=== PATIENT | female | born 1945 | race Caucasian/White ===

== ENCOUNTER 2023-02-09 13:20 | Inpatient (IN) | payer MEDICARE, SELFPAY ==
[2023-02-09] VITALS (17 sets, daily range): BP systolic 113–169; BP diastolic 41–91; PULSE 61–87; RESP 14–22; TEMP 36.1–36.8; O2SAT 89–100; BMI 30.1; BMI 28.0
--- NOTE | ~2023-02-09 | XR_ITS ---
EXAMINATION: Chest x-ray. COMPARISON: None. C ICAL INDICATIONNone available.severe abdominFrontal. TECHNIQUE: One view chest. FINDINGS: TheNo significant abnormality is noted involving the heart, lungs, mediastinum, bony thorax or soft tissues.rity slightly pUnremarkable examination.left pleural effusion or thickening there is mild spondylosis throughout dorsal spine. XR/XR chest 1V IMPRESSION: Mild haziness in both lung bases likely atelectasis or effusion. Mild cardiomegaly with mild prominence of pulmonary vascularity but no congestion.
--- NOTE | ~2023-02-09 | CT_ITS ---
Examination: CTA chest and CT abdomen and pelvis with contrast. CLINICAL INDICATION: CVA chest pain with diaphoretic and pale. COMPARISON: Chest x-ray performed earlier today at 1:25 PM. TECHNIQUE: 5 mm thin axial and reformatted 3 mm thin sagittal and coronal images of chest were obtained following IV however mL Omnipaque 350 50. Subsequently axial 3 minutes thin and 3 mm reformatted sagittal coronal images of abdomen pelvis were obtained. DLP 529. This CT examination was performed using dose optimization technique as appropriate, variously including the following: Automated exposure control Adjustment of MA and/or KV according to patient size(this includes techniques or standardized protocols for targeted exams where dose is matched to indication/reason for exam; extremities or head. Use of iterative reconstruction techniques. FINDINGS : CHEST VASCULAR: There is good opacification of thoracic aorta without aneurysm or dissection. There is a three-vessel branching of the aortic arch. There is opacification of pulmonary artery and is branches. There is no intraluminal filling defect or narrowing. NONVASCULAR: LUNGS: The lungs are well-expanded and clear of acute process. No pulmonary nodule, mass or consolidation seen. Mediastinum: The large hiatal hernia with significant narrowing of the GE junction. A volvulus cannot be excluded and should be considered in the differential diagnosis. Mild Heart size is normal. There is no pericardial effusion. Central trachea and the bronchi widely patent. No abnormal size mediastinal or hilar lymph nodes seen. Pleura: There is no pleural effusion or thickening. Axilla: No abnormal size axillary lymph nodes seen. The chest wall is unremarkable. Osseous structures: No aggressive lytic or sclerotic process seen. ABDOMEN AND PELVIS: Liver, ducts and gallbladder: The liver is normal size, contour and density. No focal lesion or intrahepatic ductal dilatation seen. There are no gallstones. Spleen: Unremarkable. Pancreas: Unremarkable. Adrenal glands: Unremarkable. Kidneys and ureters: Both kidney nephrograms are symmetrical in size and configuration without enlargement. No radiopaque renal calculi or hydronephrosis seen. GI tract: There is scattered stool and gas seen throughout the colon without significant distention. There is few scattered diverticuli but no evidence of mural thickening or fat stranding. Small bowel loops are normal caliber. Appendix is normal caliber. No free air or free fluid seen. Lymphovascular structures: Abdominal aorta is of normal caliber there is mild stenosis of the origin of celiac artery. Superior mesenteric, solitary renal arteries and inferior mesenteric artery are widely patent. Both common iliac arteries are patent as well. Abdominal wall is unremarkable. Pelvis: The uterus is anteverted. There is no free air or free fluid. Osseous structures: Grade 1 anterolisthesis L4 over L5. There is mild right L5/S1 facet joint arthropathy. No aggressive lytic or sclerotic process seen. CT/CT angio abdomen pelvis IMPRESSION: No evidence of PE. No evidence aortic aneurysm or dissection. Large hiatal hernia. There is thickening and narrowing of the GE junction. In view of patient's acute vomiting and inability to pass NG tube a gastric organoaxial volvulus needs to be excluded. Colonic diverticulosis without diverticulitis. Normal appendix. Results were discussed with Sheila BERMUDEZ by phone at 3:40 PM
--- NOTE | 2023-02-09 13:30 | ECG_ITS ---
Test Reason : chest pain Blood Pressure : / mmHG Vent. Rate : 071 BPM Atrial Rate : 071 BPM P-R Int : 290 ms QRS Dur : 086 ms QT Int : 420 ms P-R-T Axes : 061 018 065 degrees QTc Int : 456 ms Sinus rhythm with 1st degree A-V block Otherwise normal ECG No previous ECGs available Referred By: Kajal Flores Electronically Signed By:ANTONIO GARZON
--- NOTE | 2023-02-09 13:38 | ED.CHESTPAIN ---
HPI - Chest Pain General Chief Complaint: Chest Pain Stated Complaint: CHEST PAIN EPIGASTRIC PAIN Time Seen by Provider: 02/09/23 13:37 Source: patient Mode of arrival: EMS Limitations: no limitations History of Present Illness HPI narrative: 78-year-old female history of hiatal hernia, hypertension, hyperlipidemia presents with complaints of sudden-onset epigastric/chest pain with associated nausea, pain started after eating lunch she had some noodles for lunch, she reports pain is severe stabbing, also reports she feels cold, clammy family also reports she looks pale and unwell. They were going to drive her to the hospital however she got worse. On arrival she was cold, clammy, reporting severe 10/10 epigastric pain that radiates to her back. Patient does have a history of esophageal strictures and has had to have multiple endoscopies. Has not been med compliant with hypertensive medications or PPIs. Related Data Allergies Allergy/AdvReac Type Severity Reaction Status Date / Time Unable to Assess Allergy Unverified 02/09/23 13:25 Review of Systems Review of Systems: Constitutional : No Weight loss, No Fever, No Chills, No Fatigue, No Malaise ENT/Mouth : No sore throat, No Rhinorrhea Eyes: No Eye Pain, No Swelling, No Redness Cardiovascular : + Chest Pain, No SOB, No Dyspnea on Exertion, No Orthopnea, No Edema, No Palpitations Respiratory : No Cough, No Sputum, No Wheezing Gastrointestinal : No Nausea, No Vomiting, No Diarrhea, No Constipation, No abdominal Pain, No Hematochezia, No Melena Genitourinary : No Dysuria, No Urinary Frequency, No Hematuria, Musculoskeletal : No joint pain, No Myalgias, No Joint Swelling Skin : No Skin Lesions, No rash Neuro : No Weakness, No Numbness, No Dizziness, No Headache Psych : No Anxiety/Panic, No Depression All other systems reviewed and are negative Yes all other systems are reviewed and are negative COUNT INCLUDES THE [facility] Past Medical History Attestation statement: The following information was validated with the patient. Source: old records reviewed and nursing notes reviewed Social History Social History Unable to assess alcohol history related to: Unknown Smoked in Last 30 Days: No Use of substances other than those prescribed or required for medical reasons: Unknown Advance Directives: Yes Advance Directives Information Provided: Yes Advance Directives on File: No Physical Exam Vital Signs: Vital Signs: Last Vital Signs Pulse 67 02/09/23 14:00 Resp 22 H 02/09/23 14:00 BP 159/78 H 02/09/23 14:00 Pulse Ox 97 02/09/23 14:00 O2 Del Method Nasal Cannula 02/09/23 14:00 O2 Flow Rate 2 02/09/23 14:00 BMI result Body Mass Index 30.1 Vital signs significant for hypoxia, low blood pressure. Appearance: Alert.? Oriented X3.? Patient on well appearing. Uncomfortable. Head: Normocephalic, atraumatic, no step-offs or deformities Eyes: Pupils equal, round and reactive to light.? ENT: Pharynx normal.? Neck: Normal inspection.? Neck supple.? CVS: Normal heart rate and rhythm.? Pulses normal.? Respiratory: No respiratory distress.? Breath sounds breath sounds diminished on the right..? Abdomen: Soft and nontender.? No abdominal bruits Skin: Skin cold and clammy. Patient diaphoretic..? Normal skin color.? Normal skin turgor.? Extremities: No lower extremity edema.? No calf ttp. 5/5 strength to bilateral upper and lower extremities Back: No midline tenderness, no C-spine tenderness, full range of motion, no CVA tenderness bilaterally Neuro: Oriented X 3.? No motor deficit.? No sensory deficit. CN 2-12 intact Course Reevaluation(s) Reevaluation #1: CBC w/ nomocytic anemia. No baseline labs to compare with. Chemistry unremarkable. Trop negative, EKG non ischemic. Normal BNP. Coags unremarkable. COVID pending. I did look at the CT scan ? paraesophageal hernia large. Consulted surgery as they were down in the department. Dr. Cortez evaluated patient and statetes patient Should be brought to the operating room as she is symptomatic. Xray showing mild haziness in both lung bases likely atelectesis or effusion. Mild cardiomegaly w/ mild prominence of pulmonary vascularity but no congesiton. General surgery was at bedside. Recommended NGT prior to OR Nursing tried a lot of resistance. Gen surg aware of this. Called Jemal for STAT read of CTA chest, abd, pelvis. Time: 15:31 Reevaluation #2: Jemal on Radiology states large hiatal hernia and questionable volvulous very symptomatic paitnet to go to the OR Surgery at bedside. Time: 15:43 Medications Administered Discontinued Medications Generic Name Dose Route Start Last Admin Trade Name Chris PRN Reason Stop Dose Admin Fentanyl 50 mcg 02/09/23 13:41 02/09/23 13:51 Fentanyl Citrate/Pf 100 Mcg/2 Ml Vial IVPUSH 02/09/23 13:42 50 mcg ONCE ONE Administration Protocol Fentanyl 50 mcg 02/09/23 14:15 02/09/23 14:24 Fentanyl Citrate/Pf 100 Mcg/2 Ml Vial IVPUSH 02/09/23 14:16 50 mcg ONCE ONE Administration Protocol Iohexol 100 ml 02/09/23 13:53 02/09/23 13:53 Iohexol 350 Mg/Ml 100 Ml Infus..Btl IV 02/09/23 13:54 100 ml ONCE ONE Administration Lidocaine HCl 1 appl 02/09/23 14:53 02/09/23 15:22 Lidocaine Hcl 4 % Caplxh-U-Wdt 4 Ml TOPICAL 02/09/23 14:54 Not Given ONCE ONE Ondansetron HCl 4 mg 02/09/23 14:40 02/09/23 15:12 Ondansetron Hcl 4 Mg/2 Ml Vial IVPUSH 02/09/23 14:41 4 mg ONCE ONE Administration Medical Decision Making Medical Decision Making [facility] Narrative: 1046 78-year-old female presents with complaints of severe epigastric/chest pain that started prior to arrival after eating pain is severe, patient pale, diaphoretic, also reporting radiation of pain to back. Physical examination patient pale, clammy, cold, unwell appearing, uncomfortable. No abdominal bruits. Regular rate and rhythm. Breath sounds diminished on the right. Concerns for CHF versus potential dissection versus esophageal stricture versus aspiration versus acute respiratory distress. Will rule out ACS. Unlikely pulmonary embolism. Plan labs, imaging, viral test, cxr, angio chest abd pelvis Immediately upon patient arrival discuss this case with my attending Dr. Lashawn Eagle who agrees with treatment plan. Differential Diagnosis Differential Diagnoses: The differential diagnosis associated with the presentation includes Concerns for CHF versus potential dissection versus esophageal stricture versus aspiration versus acute respiratory distress. Will rule out ACS. Unlikely pulmonary embolism. Lab Data 02/09/23 13:40 02/09/23 13:40 Labs: Lab Results 02/09/23 02/09/23 Range/Units 13:40 14:01 WBC 6.9 (4.8-10.8) X10*3/uL RBC 3.63 L (4.20-5.50) X10*6/uL Hgb 9.3 L (12.0-16.0) g/dl Hct 29.5 L (37.0-47.0) % MCV 81.3 (80.0-98.0) fL MCH 25.6 L (27.0-33.0) pg MCHC 31.5 (31.0-35.0) g/dl RDW 13.7 (11.0-16.0) % Plt Count 423 H (160-400) X10*3/uL MPV 10.5 (9.4-12.3) fL Immature Gran % (Auto) 0.4 (0.0-0.4) % Neut % (Auto) 41.9 L (45-73) % Lymph % (Auto) 43.5 H (20-40) % [place] % (Auto) 9.5 (2-11) % Eos % (Auto) 3.1 (0-4) % Baso % (Auto) 1.6 (0-2) % Lymph # (Auto) 3.0 (1.2-4.9) X10*3/uL [place] # (Auto) 0.7 (0.1-1.2) X10*3/uL Eos # (Auto) 0.2 (0.0-0.4) X10*3/uL Baso # (Auto) 0.1 (0.0-0.2) X10*3/uL Abs Immat Gran (auto) 0.03 (0.00-0.03) X10*3/uL Absolute Neuts (auto) 2.9 (2.0-8.3) x10*3/uL Absolute Nucleated RBC 0.000 (0.0-0.012) X10*3/uL Nucleated RBC % (auto) 0.0 (0.0-0.2) /100WBC Smear Tech's Comments VERIFIED Hold Purple Top SEE NOTE PT 11.7 (11.1-13.3) SEC INR 1.0 (0.9-1.1) Sodium 141 (135-145) mmol/L Potassium 3.7 (3.3-5.1) mmol/L Chloride 110 H (96-108) mmol/L Carbon Dioxide 20 L (22-29) mmol/L Anion Gap 15 (12-20) BUN 15 (9-16) mg/dL Creatinine 0.78 (0.5-1.4) mg/dL Estim Creat Clear Calc 55.7 Estimated GFR > 60 POC Glucose 139 H (60-115) mg/dL Random Glucose 150 H (60-115) mg/dL Calcium 9.1 (8.4-10.2) mg/dL Magnesium 2.2 (1.6-2.6) mg/dL Total Bilirubin 0.3 (0.0-1.0) mg/dL AST 40 H (5-31) U/L ALT 24 (0-31) U/L Alkaline Phosphatase 82 (39-117) U/L Troponin I High Sens < 2.7 (<3.5-17.0) ng/L B-Natriuretic Peptide < 10 (<100) pg/mL Total Protein 7.1 (6.5-8.0) g/dL Albumin 3.9 (3.5-5.0) g/dL Hold Yellow Top See Note Critical Care Time Critical Care Time Critical Care Time: Yes Total Critical Care Time: 60 Attestation: I attest to this time spent taking care of the patient, obtaining history, physical, reviewing labs, imaging, speaking to my attending, speaking to specialist. Discharge Plan Discharge Clinical Impression: Epigastric pain, Chest pain, Cardiomegaly, Nausea & vomiting, Hernia, hiatal, Volvulus Patient Disposition: Still a Patient
[2023-02-09] MEDS: fentaNYL citrate/PF 100 MCG/2 ML VIAL 50 MCG IVPUSH ×4 (13:51→19:15)
[2023-02-09] MEDS: iohexoL 350 MG/ML 100 ML INFUS..BTL IV (13:53)
[2023-02-09 13:57] LABS: Basophils Absolute Auto 0.1 X10*3/uL (0.0-0.2); Basophils Percent Auto 1.6 % (0-2); Eosinophils Absolute Auto 0.2 X10*3/uL (0.0-0.4); Eosinophils Percent Auto 3.1 % (0-4); Hematocrit 29.5 % (37.0-47.0); Hemoglobin 9.3 g/dl (12.0-16.0); Imm Gran Abs Auto 0.03 X10*3/uL (0.00-0.03); Imm Gran Pct Auto 0.4 % (0.0-0.4); Lymphocytes Percent Auto 43.5 % (20-40); MANUAL DIFF FLAG SCAN; Mean Corpuscular HGB Conc 31.5 g/dl (31.0-35.0); Mean Corpuscular Hemoglobin 25.6 pg (27.0-33.0); Mean Corpuscular Volume 81.3 fL (80.0-98.0); Monocytes Absolute Auto 0.7 X10*3/uL (0.1-1.2); Monocytes Percent Auto 9.5 % (2-11); Neutrophils Absolute Auto 2.9 x10*3/uL (2.0-8.3); Neutrophils Percent Auto 41.9 % (45-73); PLT CLUMP 1; Red Blood Count 3.63 X10*6/uL (4.20-5.50); Red Cell Distribution Width 13.7 % (11.0-16.0); SCAN SMEAR FLAG 1; White Blood Count 6.9 X10*3/uL (4.8-10.8)
--- NOTE | 2023-02-09 14:02 | MHC.EDTECH ---
POC 139 RN aware
[2023-02-09 14:03] LABS: Prothrombin Time 11.7 SEC (11.1-13.3)
[2023-02-09 14:06] LABS: Glucose, Whole Blood 139 mg/dL (60-115)
[2023-02-09 14:17] LABS: Troponin-I High Sensitivity < 2.7 ng/L (<3.5-17.0)
[2023-02-09 14:21] LABS: Alanine Aminotransferase 24 U/L (0-31); Albumin Level 3.9 g/dL (3.5-5.0); Alkaline Phosphatase 82 U/L (39-117); Anion Gap 15 (12-20); Aspartate Amino Transferase 40 U/L (5-31); Bilirubin Total 0.3 mg/dL (0.0-1.0); Blood Urea Nitrogen 15 mg/dL (9-16); Calcium 9.1 mg/dL (8.4-10.2); Carbon Dioxide 20 mmol/L (22-29); Chloride 110 mmol/L (96-108); Creatinine Clr Calc Pharmacy 55.7; Estimated Glomerular Filt Rate > 60; Glucose Random 150 mg/dL (60-115); Magnesium 2.2 mg/dL (1.6-2.6); Potassium 3.7 mmol/L (3.3-5.1); Sodium 141 mmol/L (135-145); Total Protein 7.1 g/dL (6.5-8.0)
[2023-02-09 14:23] LABS: Mean Platelet Volume 10.5 fL (9.4-12.3); Platelet Count 423 X10*3/uL (160-400)
[2023-02-09 14:24] LABS: SLIDE REVIEW VERIFIED
[2023-02-09 15:05] LABS: B Type Natriuretic Peptide < 10 pg/mL (<100)
[2023-02-09] MEDS: ondansetron HCL 4 MG/2 ML VIAL IVPUSH (15:12)
--- NOTE | 2023-02-09 15:56 | PC.NURSE ---
Report to PACU staff. Pt off the floor with surgeon to OR
--- NOTE | 2023-02-09 16:07 | HO.ANESPROP2 ---
HPI - Anesthesia Eval Consult details Narrative: for repair of gastric volvulus PMFSH Active Problems Active Problems: All Active Problems (Updated 02/09/23 @ 15:44 by AIDAN Schafer) Volvulus (Acute) Hernia, hiatal (Acute) Nausea & vomiting (Acute) Cardiomegaly (Acute) Chest pain (Acute) Epigastric pain (Acute) Past Medical History Medical History (Updated 02/09/23 @ 16:18 by Marina Morales RN) Acid reflux Hypertension Hypercholesteremia Family History Family history of problems with anesthesia: No Surgical History History of Problems with Anesthesia: No Social History Social History Unable to assess alcohol history related to: Unknown Smoked in Last 30 Days: No Use of substances other than those prescribed or required for medical reasons: Unknown Advance Directives: Yes Advance Directives Information Provided: Yes Advance Directives on File: No Meds Allergies Allergy/AdvReac Type Severity Reaction Status Date / Time meperidine [From Demerol] Allergy Unknown Verified 02/09/23 16:07 Active Medications: Current Medications Famotidine (Famotidine/Pf 20 Mg/2 Ml Vial) 20 mg IVPUSH ONCE ONE Stop: 02/09/23 16:16 Hydromorphone HCl (Hydromorphone Hcl 1 Mg/Ml Syringe) 1 mg IVPUSH ONCE ONE Stop: 02/09/23 16:16 Exam Height,Weight and Vital Signs: Height 5 ft 1 in Weight 72.2 kg Last Vital Signs Temp 97.3 F 02/09/23 15:52 Pulse 77 02/09/23 15:52 Resp 18 02/09/23 15:52 BP 139/71 02/09/23 15:52 Pulse Ox 96 02/09/23 15:52 O2 Del Method Room Air 02/09/23 15:52 O2 Flow Rate 2 02/09/23 14:00 Pertinent Lab Results Pertinent Lab Results: Laboratory Tests 02/09/23 02/09/23 13:40 14:01 WBC 6.9 RBC 3.63 L Hgb 9.3 L Hct 29.5 L MCV 81.3 MCH 25.6 L MCHC 31.5 RDW 13.7 Plt Count 423 H MPV 10.5 Immature Gran % (Auto) 0.4 Neut % (Auto) 41.9 L Lymph % (Auto) 43.5 H [place] % (Auto) 9.5 Eos % (Auto) 3.1 Baso % (Auto) 1.6 Lymph # (Auto) 3.0 [place] # (Auto) 0.7 Eos # (Auto) 0.2 Baso # (Auto) 0.1 Abs Immat Gran (auto) 0.03 Absolute Neuts (auto) 2.9 Absolute Nucleated RBC 0.000 Nucleated RBC % (auto) 0.0 Smear Tech's Comments VERIFIED Hold Purple Top SEE NOTE PT 11.7 INR 1.0 Sodium 141 Potassium 3.7 Chloride 110 H Carbon Dioxide 20 L Anion Gap 15 BUN 15 Creatinine 0.78 Estim Creat Clear Calc 55.7 Estimated GFR > 60 POC Glucose 139 H Random Glucose 150 H Calcium 9.1 Magnesium 2.2 Total Bilirubin 0.3 AST 40 H ALT 24 Alkaline Phosphatase 82 Troponin I High Sens < 2.7 B-Natriuretic Peptide < 10 Total Protein 7.1 Albumin 3.9 Hold Yellow Top See Note Narrative Narrative: ED was unable to place NGT, prob bec of volvulus. D/w Dr. Cortez at length, stomach and esoph should be empty. IMO, no need for awake intubation. Airway Mallampati Class: II TM Dist: <=3cm Neck ROM: Full Loose/Missing/Broken Teeth: No Heart: ok Lungs: ok Assessment and Plan Assessment Anesthesia Assessment: Anesthesia Plan Discussed and Chart Reviewed Final Anesthetic Review Family History of Problems with Anesthesia: No History of Problems with Anesthesia: No NPO: No (last ate at noon today, but wretched everything up) ASA Class: III and Emergency Final Preanesthetic Review: No Changes in Pt Med Stat, Meds/Allgs Chart Reviewed, Consent Obtained/Reviewed and Anes Risks/Benef Reviewed Patient Risk: Intermediate Procedure Risk: Intermediate Anesthetic Plan Anesthetic Plan: GA (w RSI.) and Agree w/ Assess. and Plan Disposition: Standard PACU
[2023-02-09] MEDS: HYDROmorphone HCl 1 MG/ML SYRINGE IVPUSH (16:08)
[2023-02-09] MEDS: Famotidine/PF 20 MG/2 ML VIAL IVPUSH (16:08)
--- NOTE | 2023-02-09 16:28 | P.HPGS_ITS ---
History of Present Illness History of Present Illness Date of Service: 02/09/23 <Abimbola Magdaleno PA-C - Last Filed: 02/09/23 16:39> 02/09/23 <Kurt Cortez MD - Last Filed: 02/09/23 16:35> Chief complaint: CHEST PAIN EPIGASTRIC PAIN <Abimbola Magdaleno PA-C - Last Filed: 02/09/23 16:39> Narrative: Valentina Briggs is a 78 year old female with PMH of hiatal hernia, hypertension, hyperlipidemia who presented to the ED with complaints of sudden- onset epigastric/chest pain. The pain started today after eating lunch. It was associated with nausea and vomiting and some shortness of breath. The pain is described as severe stabbing and radiating to her back. She denies fever, but endorses feeling cold and clammy. Work up included CTA of chest and abdomen which showed a large hiatal hernia with thickening and narrowing of the GE junction and mesentroaxial gastric volvulus without evidence aortic aneurysm or dissection. Surgery was therefore consulted. <Abimbola Magdaleno PA-C - Last Filed: 02/09/23 16:39> Review of Systems Constitutional: Constitutional: Reports chills, Denies fever(s) and Denies malaise <Abimbola Magdaleno PA-C - Last Filed: 02/09/23 16:39> ENT: Denies dizziness <Abimbola Magdaleno PA-C - Last Filed: 02/09/23 16:39> Cardiovascular: Cardiovascular: Reports chest pain and Reports dyspnea <Abimbola Magdaleno PA-C - Last Filed: 02/09/23 16:39> Respiratory: Respiratory: Denies cough and Reports dyspnea <LEANNA Montes Last Filed: 02/09/23 16:39> Gastrointestinal: Gastrointestinal: Reports as per HPI, Denies coffee ground emesis, Denies constipation, Denies diarrhea and Denies hematemesis <LEANNA Montes Last Filed: 02/09/23 16:39> Genitourinary: Genitourinary: Denies dysuria <LEANNA Montes Last Filed: 02/09/23 16:39> Integumentary/Breasts: Skin/Breast: Denies rash and Denies jaundice <Abimbola Magdaleno PA-C - Last Filed: 02/09/23 16:39> Neurologic: Denies confusion and Denies dizziness <LILLIANA Montes - Last Filed: 02/09/23 16:39> Psychiatric: Psychiatric: Denies confusion <Abimbola Magdaleno PA-C - Last Filed: 02/09/23 16:39> [facility] Past Medical History Medical History: Medical History (Updated 02/09/23 @ 16:33 by Abimbola Magdaleno PA-C) Acid reflux Hypertension Hypercholesteremia <Abimbola Magdaleno PA-C - Last Filed: 02/09/23 16:39> Social History Social History: Social History Unable to assess alcohol history related to: Unknown Patient Tobacco Use Status: Never used Tobacco Smoked in Last 30 Days: No Use of substances other than those prescribed or required for medical reasons: Unknown Are you DNR?: No Advance Directives: No Advance Directives Information Provided: Yes Advance Directives on File: No Recently lost weight without trying: No Nutrition Risks: No Nutritional Risk <Abimbola Magdaleno PA-C - Last Filed: 02/09/23 16:39> Meds Allergies/Adverse reactions: Allergies Allergy/AdvReac Type Severity Reaction Status Date / Time meperidine [From Demerol] Allergy Unknown Verified 02/09/23 16:07 <Abimbola Magdaleno PA-C - Last Filed: 02/09/23 16:39> Active Medications: Current Medications Fentanyl (Fentanyl Citrate/Pf 100 Mcg/2 Ml Vial) 50 mcg IVPUSH Q5M PRN; Protocol PRN Reason: Pain, Severe (Pain Scale 7-10) Hydromorphone HCl (Hydromorphone Hcl 0.5 Mg/0.5 Ml Syringe) 0.5 mg IVPUSH Q5M PRN; Protocol PRN Reason: Pain, Severe (Pain Scale 7-10) Ondansetron HCl (Ondansetron Hcl 4 Mg/2 Ml Vial) 4 mg IVPUSH ONCE PRN PRN Reason: Nausea and Vomiting <Abimbola Magdaleno PA-C - Last Filed: 02/09/23 16:39> Physical Exam Vital Signs: Vital Signs: Last Vital Signs Temp 97.3 F 02/09/23 15:52 Pulse 77 02/09/23 15:52 Resp 18 02/09/23 16:08 BP 139/71 02/09/23 15:52 Pulse Ox 96 02/09/23 15:52 O2 Del Method Room Air 02/09/23 15:52 O2 Flow Rate 2 02/09/23 14:00 BMI result Body Mass Index 28.0 <Abimbola Magdaleno PA-C - Last Filed: 02/09/23 16:39> Const: General: alert and other (uncomfortable appearing ); No confusion <Abimbola Magdaleno PA-C - Last Filed: 02/09/23 16:39> Orientation/consciousness: patient oriented x3 and No confusion <Abimbola Magdaleno PA-C - Last Filed: 02/09/23 16:39> Resp: Effort & Inspection: normal respiratory effort <Abimbola Magdaleno PA-C - Last Filed: 02/09/23 16:39> Auscultation: diminished lung sounds (b/l) <LILLIANA Montes - Last Filed: 02/09/23 16:39> Cardio: Rate: regular rate <Abimbola Magdaleno PA-C - Last Filed: 02/09/23 16:39> GI: Inspection: No distended <Abimbola Magdaleno PA-C - Last Filed: 02/09/23 16:39> Palpation (GI): Soft to palpation, Tenderness to palpation present (GI) (upper abdomen ), no guarding and not rigid <Abimbola Magdaleno PA-C - Last Filed: 02/09/23 16:39> Percussion: Yes normal to percussion <Abimbola Magdaleno PA-C - Last Filed: 02/09/23 16:39> Skin: General skin exam: no rashes or lesions noted and no jaundice <Abimbola Magdaleno PA-C - Last Filed: 02/09/23 16:39> Neuro: General: patient oriented x3, moves all extremities and No confusion <Abimbola Magdaleno PA-C - Last Filed: 02/09/23 16:39> Results Results Labs: Short CBC 02/09/23 Range/Units 13:40 WBC 6.9 (4.8-10.8) X10*3/uL Hgb 9.3 L (12.0-16.0) g/dl Hct 29.5 L (37.0-47.0) % Plt Count 423 H (160-400) X10*3/uL BMP 02/09/23 13:40 Sodium 141 Potassium 3.7 Chloride 110 H Carbon Dioxide 20 L BUN 15 Creatinine 0.78 Calcium 9.1 Liver Function 02/09/23 Range/Units 13:40 Total Bilirubin 0.3 (0.0-1.0) mg/dL AST 40 H (5-31) U/L ALT 24 (0-31) U/L Alkaline Phosphatase 82 (39-117) U/L Albumin 3.9 (3.5-5.0) g/dL <LEANNA Montes Last Filed: 02/09/23 16:39> Abdomen CT scan report/results: report reviewed and image reviewed <LEANNA Montes Last Filed: 02/09/23 16:39> Assessment and Plan (1) Gastric volvulus: Status: Acute <LEANNA Montes Last Filed: 02/09/23 16:39> The patient will be admitted to the surgical intervention for further treatment of the gastric volvulus. It was recommended to proceed with laparotomy, repair of the gastric volvulus and G tube placement. Risks, benefits, alternatives of the procedure were reviewed with the patient and daughter including but not limited to bleeding, infection, numbness, pain, scarring, injury to the stomach or bowel, recurrence. The patient and family wishes to proceed. NGT has been ordered preoperatively. <LEANNA Montes Last Filed: 02/09/23 16:39> Quality Stroke Does the patient have a stroke diagnosis?: No <Kurt Cortez MD - Last Filed: 02/09/23 16:35> VTE Prior VTE?: No <Kurt Cortez MD - Last Filed: 02/09/23 16:35> VTE Risk Level:: Surgical - low <Kurt Cortez MD - Last Filed: 02/09/23 16:35> VTE Device Contraindication: N/A - Device Ordered <Kurt Cortez MD - Last Filed: 02/09/23 16:35> VTE Drug Contraindication: N/A - Med Ordered <Kurt Cortez MD - Last Filed: 02/09/23 16:35> Procedures Date of Service Date of Service: 02/09/23 <Abimbola Magdaleno PA-C - Last Filed: 02/09/23 16:39> 02/09/23 <Kurt Cortez MD - Last Filed: 02/09/23 16:35>
--- NOTE | 2023-02-09 17:56 | W.PM.OPN ---
Operative Note Operative Note Date of Service: 02/09/23 Narrative: Preoperative diagnosis: [] Acute gastric volvulus, paraesophageal hernia Postop diagnosis: [] Same Procedure [] exploratory laparotomy, reduction gastric volvulus, closure of esophageal hiatus, open G-tube placement Surgeon: [] Diego [employer] Deliverer: [] Sharla Type of Anesthesia: [] General Indication for surgery: [] Patient presents with acute severe retrosternal pain with inability to tolerate food and vomiting. Workup including CT scan demonstrated findings consistent with large paraesophageal hernia and acute gastric volvulus. Patient was in acute significant distress. To limit intraop anesthesia time in this elderly patient,, decision was made to repair this via open technique. Intraoperative findings demonstrated an enormous paraesophageal hiatal hernia with the good portion of the stomach in the patient's mediastinum with the stomach folded on itself. Stomach was edematous, quite floppy and atonic, but pink and viable throughout.. Open G-tube placement demonstrated old food content in the stomach. Findings: [] Patient brought to the operating room, placed drop table supine position, after adequate level of general anesthesia was induced, the patient's abdomen and upper chest were prepped draped in usual sterile fashion. Using upper midline incision, this carried down through skin, subcutaneous tissue, and linea alba. Posterior fascia and peritoneum were opened extending the length incision. Incision was extended just to the left of the xiphoid process. Packs and retractors were placed to enhance exposure. Findings were as noted above. Hand over fist grasping of the stomach reduced the stomach back into the abdominal cavity. Orogastric tube was used to decompress the stomach. Right and left Crura, which were very attenuated ,were reapproximated using interrupted 0 Prolene sutures. Stomach was then brought onto the field and using 2 2-0 pursestring sutures of the proximal stomach, and next, through the left upper quadrant separate stab wound incision, 24 [place] catheter was entered the abdominal cavity. A gastrotomy was made using Bovie in the center of the two pursue string sutures and feeding tube was advanced into the distal stomach. Approximately 2 cc of air was placed in the gastric feeding tube balloon. Pursestring sutures were then secured and the stomach was pexyed to the anterior abdominal wall using interrupted 2-0 silk sutures; seromuscular to peritoneal approximation. G-tube was flushed easily and uneventfully. G-tube was secured the skin using 2-0 nylon. Abdominal cavity was copiously irrigated and secured for hemostasis. Wound was closed the following manner; mass closure using looped 1 PDS suture was used to close the perineum and fascia. A left parasternal over and over 0 Maxon suture was also placed. Interrupted inverted deep dermal 3-0 Vicryl sutures followed by running subcuticular 4-0 Vicryl suture placed. Steri-Strips and sterile dressings were applied. The wound Was infiltrated 0.5% Marcaine at completion. G-tube had a plug device placed at completion. Sponge, needle, instrument counts reported correct. Patient tolerated the procedure well and emerged anesthesia in stable condition. EBL minimal
[2023-02-09] MEDS: oxyCODONE HCl Immed Release 5 MG TABLET PO (18:40)
[2023-02-09] MEDS: Acetaminophen 1,000 MG/100 ML PIGGYBACK 400 MG IV (20:17)
[2023-02-09] MEDS: Lactated Ringers 1,000 ML 80 ML IVCONT (20:17)
--- NOTE | 2023-02-09 20:19 | PHA.MEDREC ---
Pharmacy Consult ? Medication Reconciliation Pharmacy has completed the medication reconciliation.Patient has previously been on atorvastatin, lisinopril, and nexium. Has not been on any medications for about 2 months, has been discussing with primary care PA if these meds will be added back
[2023-02-09] MEDS: 0.9 % Sodium Chloride Flush 3 ML SYRINGE IVFLUSH (20:21)
[2023-02-09] MEDS: Morphine Sulfate 4 MG/ML CARTRIDGE IVPUSH (23:50)
[2023-02-10] VITALS: BP 147/67; PULSE 87; RESP 16; TEMP 36.2; O2SAT 94
[2023-02-10] MEDS: Acetaminophen 1,000 MG/100 ML PIGGYBACK 400 MG IV ×4 (03:22→19:46)
[2023-02-10 03:25] VITALS: BP 155/74; PULSE 87; RESP 16; TEMP 36.8; O2SAT 97
[2023-02-10] MEDS: Morphine Sulfate 4 MG/ML CARTRIDGE IVPUSH (04:10)
[2023-02-10] MEDS: Lactated Ringers 1,000 ML 80 ML IVCONT ×2 (04:34→17:20)
[2023-02-10 07:44] VITALS: BP 144/66; PULSE 85; RESP 16; TEMP 36.6; O2SAT 93
--- NOTE | 2023-02-10 07:51 | PM.PNGS ---
Subjective Subjective Date of Service: 02/10/23 Interval history: Feels much better this morning. Reports some incisional pain but comfortable. Denies nausea, vomiting. No flatus yet. Has not been OOB. Physical Exam Vital Signs: Vital Signs: Last Vital Signs Temp 97.8 F 02/10/23 07:44 Pulse 85 02/10/23 07:44 Resp 16 02/10/23 07:44 BP 144/66 H 02/10/23 07:44 Pulse Ox 93 02/10/23 07:44 O2 Del Method Room Air 02/10/23 07:44 O2 Flow Rate 2 02/09/23 19:30 BMI result Body Mass Index 28.0 Const: General: comfortable, no acute distress and alert Orientation/consciousness: patient oriented x3 Resp: Effort & Inspection: normal respiratory effort GI: Other: G tube in place Inspection: No distended and Yes incision (dressing c/d/i) Palpation (GI): Soft to palpation, Tenderness to palpation present (GI) (mild, incisional), no guarding and not rigid Percussion: Yes normal to percussion Skin: General skin exam: no rashes or lesions noted Neuro: General: patient oriented x3 and moves all extremities Objective Data Active Medications Heparin Sodium (Porcine) (Heparin Sodium,Porcine 5,000 Unit/Ml Vial) 5,000 unit SUBCUT Q12H [facility] Lactated Ringer's (Lr) 1,000 mls @ 80 mls/hr IVCONT .[id number] [facility] Last Admin: 02/10/23 04:34 Dose: 80 mls/hr Documented By: MANA Promethazine HCl 12.5 mg/ (Sodium Chloride) 50.5 mls @ 202 mls/hr IV Q6H PRN PRN Reason: Nausea and Vomiting Acetaminophen (Ofirmev) 1,000 mg in 100 mls @ 400 mls/hr IV Q6H [facility] Last Admin: 02/10/23 07:47 Dose: 400 mls/hr Documented By: VERONIKA Melatonin (Melatonin 3 Mg Tablet) 6 mg PO BEDTIME PRN PRN Reason: Insomnia Morphine Sulfate (Morphine Sulfate 4 Mg/Ml Cartridge) 4 mg IVPUSH Q4H PRN; Protocol PRN Reason: Pain, Severe (Pain Scale 7-10) Last Admin: 02/10/23 04:10 Dose: 4 mg Documented By: MANA Ondansetron HCl (Ondansetron Hcl 4 Mg/2 Ml Vial) 4 mg IVPUSH ONCE PRN PRN Reason: Nausea and Vomiting Ondansetron HCl (Ondansetron Hcl 4 Mg/2 Ml Vial) 4 mg IVPUSH Q8H PRN PRN Reason: Nausea and Vomiting Oxycodone HCl (Oxycodone Hcl Immed Release 5 Mg Tablet) 5 mg PO Q4H PRN PRN Reason: Pain, Moderate(Pain Scale 4-6) Last Admin: 02/09/23 18:40 Dose: 5 mg Documented By: TING Sodium Chloride (0.9 % Sodium Chloride Flush 3 Ml Syringe) [facility] Last Admin: 02/10/23 07:41 Dose: Not Given Documented By: VERONIKA Non-Admin Reason: IV Running Labs 02/09/23 13:40 02/09/23 13:40 Labs: Laboratory Results - last 24 hr 02/09/23 02/09/23 02/09/23 13:40 13:53 14:01 MCV 81.3 MCH 25.6 L MCHC 31.5 RDW 13.7 Plt Count 423 H MPV 10.5 Immature Gran % (Auto) 0.4 Neut % (Auto) 41.9 L Lymph % (Auto) 43.5 H [place] % (Auto) 9.5 Eos % (Auto) 3.1 Baso % (Auto) 1.6 Lymph # (Auto) 3.0 [place] # (Auto) 0.7 Eos # (Auto) 0.2 Baso # (Auto) 0.1 Abs Immat Gran (auto) 0.03 Absolute Neuts (auto) 2.9 Absolute Nucleated RBC 0.000 Nucleated RBC % (auto) 0.0 Smear Tech's Comments VERIFIED Hold Purple Top SEE NOTE PT 11.7 INR 1.0 Anion Gap 15 Estim Creat Clear Calc 55.7 Estimated GFR > 60 POC Glucose 139 H Random Glucose 150 H Calcium 9.1 Magnesium 2.2 Total Bilirubin 0.3 AST 40 H ALT 24 Alkaline Phosphatase 82 B-Natriuretic Peptide < 10 Total Protein 7.1 Albumin 3.9 Hold Yellow Top See Note COVID-19 (MOIZ) Cancelled COVID-19 Clin Com Cancelled Procedures Date of Service Date of Service: 02/10/23 Progress Note: A&P Assessment and plan (1) Gastric volvulus: Status: Acute Plan POD #1 s/p exploratory laparotomy, reduction gastric volvulus, closure of esophageal hiatus, open G-tube placement. Doing well post op. Abd benign with appropriate post op tenderness, dressing c/d/i, G tube remains in place. Cont pain control. Advance to clear liquids. Encouraged OOB/ambulation of halls and incentive spirometer use. AM labs pending. Patient and daughter comfortable with plan. Time Spent With Patient Time: Total time managing care of this patient today ____ minutes. Quality Stroke Does the patient have a stroke diagnosis?: No VTE Prior VTE?: No VTE Risk Level:: Surgical - high VTE Device Contraindication: N/A - Device Ordered VTE Drug Contraindication: N/A - Med Ordered
--- NOTE | 2023-02-10 09:43 | MHC.CM.PN ---
IMM DELIVERED. PATIENT FROM HOME ALONE, FUNCTIONALLY INDEPENDENT AND VERY ACTIVE, FAMILY CLOSE BY. NO SERVICES OR EQUIPMENT. PCP: CANDIDO ERVIN MD - RETIRING IN FEBRUARY AND HAS BEEN ASSIGNED TO NEW PCP DR. SARKAR IN SAME PRACTICE, HAS APPT IN FEB. HCP: PT STATES DAUGHTER RACHEL IS 1ST AGENT AND DAUGHTER MIRZA IS 2ND AGENT. COPY REQUESTED. DP: POD #1, OPEN G TUBE PLACED, NOT TO BE USED FOR FEEDS, ADVANCING DIET TODAY. UNSURE IF SERVICES WILL BE NEEDED, PATIENT IS OPEN TO VNA. DAUGHTER WILL TRANSPORT HOME. CM WILL CONTINUE TO FOLLOW.
[2023-02-10 10:30] LABS: MANUAL DIFF FLAG NO
[2023-02-10 10:36] LABS: Basophils Percent Auto 0.4 % (0-2); Eosinophils Percent Auto 0.1 % (0-4); Hematocrit 27.4 % (37.0-47.0); Hemoglobin 8.6 g/dl (12.0-16.0); Imm Gran Abs Auto 0.04 X10*3/uL (0.00-0.03); Imm Gran Pct Auto 0.4 % (0.0-0.4); Lymphocytes Absolute Auto 1.2 X10*3/uL (1.2-4.9); Lymphocytes Percent Auto 13.2 % (20-40); Mean Corpuscular HGB Conc 31.4 g/dl (31.0-35.0); Mean Corpuscular Hemoglobin 25.8 pg (27.0-33.0); Mean Corpuscular Volume 82.3 fL (80.0-98.0); Mean Platelet Volume 9.5 fL (9.4-12.3); Monocytes Absolute Auto 0.8 X10*3/uL (0.1-1.2); Monocytes Percent Auto 8.5 % (2-11); Neutrophils Absolute Auto 7.2 x10*3/uL (2.0-8.3); Neutrophils Percent Auto 77.4 % (45-73); Platelet Count 388 X10*3/uL (160-400); Red Blood Count 3.33 X10*6/uL (4.20-5.50); Red Cell Distribution Width 13.9 % (11.0-16.0); White Blood Count 9.3 X10*3/uL (4.8-10.8)
[2023-02-10 11:02] LABS: Anion Gap 10 (12-20); Blood Urea Nitrogen 10 mg/dL (9-16); Calcium 8.9 mg/dL (8.4-10.2); Carbon Dioxide 28 mmol/L (22-29); Chloride 106 mmol/L (96-108); Creatinine Clr Calc Pharmacy 58.2; Estimated Glomerular Filt Rate > 60; Glucose Random 134 mg/dL (60-115); Potassium 4.4 mmol/L (3.3-5.1); Sodium 140 mmol/L (135-145)
--- NOTE | 2023-02-10 11:26 | HO.POSTANES ---
Post Anesthesia Evaluation Post Anesthesia Evaluation Date of Service: 02/09/23 Vital Signs: Vital Signs Temp Pulse Resp BP Pulse Ox O2 Del Method 02/10/23 07:44 97.8 F 85 16 144/66 H 93 Room Air 02/10/23 03:25 98.2 F 87 16 155/74 H 97 Room Air 02/10/23 00:00 97.2 F 87 16 147/67 H 94 Room Air Anesthesia: General Endotracheal-GETA Mental Status: Awake Pain Control: Satisfactory Nausea/Vomiting: None Hydration: Adequate Anesthesia-Related Issues: No Anes. Related Issues
[2023-02-10 11:48] VITALS: BP 149/65; PULSE 78; RESP 16; TEMP 36.1
[2023-02-10] MEDS: oxyCODONE HCl Immed Release 5 MG TABLET PO ×3 (12:52→23:04)
[2023-02-10 15:52] VITALS: BP 135/60; PULSE 77; RESP 18; TEMP 37; O2SAT 92
[2023-02-10] MEDS: Heparin Sodium,Porcine 5,000 UNIT/ML VIAL 5000 UNIT SUBCUT (17:19)
[2023-02-10 19:01] VITALS: BP 153/67; PULSE 79; RESP 18; TEMP 37; O2SAT 93
[2023-02-11] MEDS: Acetaminophen 1,000 MG/100 ML PIGGYBACK 400 MG IV ×3 (02:06→20:00)
[2023-02-11 02:43] VITALS: BP 165/72; PULSE 81; RESP 16; TEMP 36.1; O2SAT 94
[2023-02-11] MEDS: oxyCODONE HCl Immed Release 5 MG TABLET PO ×4 (03:16→20:01)
[2023-02-11] MEDS: Heparin Sodium,Porcine 5,000 UNIT/ML VIAL 5000 UNIT SUBCUT ×2 (05:16→16:02)
[2023-02-11] MEDS: Lactated Ringers 1,000 ML 80 ML IVCONT (05:16)
[2023-02-11 07:44] VITALS: BP 147/66; PULSE 79; RESP 18; TEMP 36; O2SAT 92
--- NOTE | 2023-02-11 08:21 | PM.PNGS ---
Subjective Subjective Date of Service: 02/11/23 Interval history: Feels ok this morning. Incisional pain controlled with oxycodone and IV tylenol. Has had some occasional nausea and belching. Passing occasional flatus. OOB and ambulated halls 3 times yesterday. Physical Exam Vital Signs: Vital Signs: Last Vital Signs Temp 96.8 F 02/11/23 07:44 Pulse 79 02/11/23 07:44 Resp 18 02/11/23 07:44 BP 147/66 H 02/11/23 07:44 Pulse Ox 92 02/11/23 07:44 O2 Del Method Room Air 02/11/23 07:44 O2 Flow Rate 2 02/09/23 19:30 BMI result Body Mass Index 28.0 Const: General: comfortable, no acute distress and alert Orientation/consciousness: patient oriented x3 Resp: Effort & Inspection: normal respiratory effort GI: Other: G tube in place Inspection: Yes incision (clean) Palpation (GI): Soft to palpation, Tenderness to palpation present (GI) (mild incisional), no guarding and not rigid Percussion: Yes normal to percussion Skin: General skin exam: no rashes or lesions noted Neuro: General: patient oriented x3 and moves all extremities Objective Data Active Medications Amlodipine Besylate (Amlodipine Besylate 5 Mg Tablet) 5 mg PO DAILY [facility]; Protocol Heparin Sodium (Porcine) (Heparin Sodium,Porcine 5,000 Unit/Ml Vial) 5,000 unit SUBCUT Q12H [facility] Last Admin: 02/11/23 05:16 Dose: 5,000 unit Documented By: STEPHANIE Lactated Ringer's (Lr) 1,000 mls @ 80 mls/hr IVCONT .[id number] [facility] Last Admin: 02/11/23 05:16 Dose: 80 mls/hr Documented By: STEPHANIE Promethazine HCl 12.5 mg/ (Sodium Chloride) 50.5 mls @ 202 mls/hr IV Q6H PRN PRN Reason: Nausea and Vomiting Acetaminophen (Ofirmev) 1,000 mg in 100 mls @ 400 mls/hr IV Q6H [facility] Last Admin: 02/11/23 07:33 Dose: 400 mls/hr Documented By: AFSHIN Melatonin (Melatonin 3 Mg Tablet) 6 mg PO BEDTIME PRN PRN Reason: Insomnia Morphine Sulfate (Morphine Sulfate 4 Mg/Ml Cartridge) 4 mg IVPUSH Q4H PRN; Protocol PRN Reason: Pain, Severe (Pain Scale 7-10) Last Admin: 02/10/23 04:10 Dose: 4 mg Documented By: MANA Ondansetron HCl (Ondansetron Hcl 4 Mg/2 Ml Vial) 4 mg IVPUSH ONCE PRN PRN Reason: Nausea and Vomiting Ondansetron HCl (Ondansetron Hcl 4 Mg/2 Ml Vial) 4 mg IVPUSH Q8H PRN PRN Reason: Nausea and Vomiting Oxycodone HCl (Oxycodone Hcl Immed Release 5 Mg Tablet) 5 mg PO Q4H PRN PRN Reason: Pain, Moderate(Pain Scale 4-6) Last Admin: 02/11/23 03:16 Dose: 5 mg Documented By: STEPHANIE Sodium Chloride (0.9 % Sodium Chloride Flush 3 Ml Syringe) 3 ml IVFLUSH QSHIFT [facility] Last Admin: 02/11/23 07:03 Dose: Not Given Documented By: AFSHIN Non-Admin Reason: IV Running Labs 02/10/23 09:56 02/10/23 09:56 Labs: Laboratory Results - last 24 hr 02/10/23 09:56 MCV 82.3 MCH 25.8 L MCHC 31.4 RDW 13.9 Plt Count 388 MPV 9.5 Immature Gran % (Auto) 0.4 Neut % (Auto) 77.4 H Lymph % (Auto) 13.2 L [place] % (Auto) 8.5 Eos % (Auto) 0.1 Baso % (Auto) 0.4 Lymph # (Auto) 1.2 [place] # (Auto) 0.8 Eos # (Auto) 0.0 Baso # (Auto) 0.0 Abs Immat Gran (auto) 0.04 H Absolute Neuts (auto) 7.2 Absolute Nucleated RBC 0.000 Nucleated RBC % (auto) 0.0 Anion Gap 10 L Estim Creat Clear Calc 58.2 Estimated GFR > 60 Random Glucose 134 H Calcium 8.9 Procedures Date of Service Date of Service: 02/11/23 Progress Note: A&P Assessment and plan (1) Gastric volvulus: Status: Acute (2) Hypertension: Status: Acute Plan POD #2 s/p exploratory laparotomy, reduction gastric volvulus, closure of esophageal hiatus, open G-tube placement. Continues to do well post op. Abd remains benign with appropriate post op tenderness, incision clean, G tube remains in place. Will continue liquids for now. Encouraged OOB/ambulation of halls and incentive spirometer use. Has been persistently hypertensive with pain controlled. Will add Norvasc 5mg PO daily and monitor. Patient and daughter comfortable with plan. Time Spent With Patient Time: Total time managing care of this patient today ____ minutes. Quality Stroke Does the patient have a stroke diagnosis?: No VTE Prior VTE?: No VTE Risk Level:: Surgical - high VTE Device Contraindication: N/A - Device Ordered VTE Drug Contraindication: N/A - Med Ordered
[2023-02-11] MEDS: amLODIPine Besylate 5 MG TABLET PO (09:16)
[2023-02-11 16:00] VITALS: BP 141/66; PULSE 79; RESP 17; TEMP 36.4; O2SAT 93
[2023-02-11] MEDS: 0.9 % Sodium Chloride Flush 3 ML SYRINGE IVFLUSH ×2 (16:02→20:01)
[2023-02-11 19:41] VITALS: BP 161/71; PULSE 83; TEMP 36.3; O2SAT 93
[2023-02-11] MEDS: Docusate Sodium 100 MG CAPSULE PO (20:01)
[2023-02-12] MEDS: Acetaminophen 1,000 MG/100 ML PIGGYBACK 400 MG IV (02:00)
[2023-02-12 03:57] VITALS: BP 136/60; PULSE 72; RESP 18; TEMP 36.5; O2SAT 93
[2023-02-12] MEDS: Heparin Sodium,Porcine 5,000 UNIT/ML VIAL 5000 UNIT SUBCUT (05:36)
[2023-02-12 07:47] VITALS: BP 141/65; PULSE 81; RESP 18; TEMP 36.2; O2SAT 94
--- NOTE | 2023-02-12 08:22 | PM.PNGS ---
Subjective Subjective Date of Service: 02/12/23 Interval history: Tolerated a small amount of solid food. No significant appetite. Denies nausea or vomiting. Passing flatus but no BM since Wednesday. OOB and ambulating. Physical Exam Vital Signs: Vital Signs: Last Vital Signs Temp 97.1 F 02/12/23 07:47 Pulse 81 02/12/23 07:47 Resp 18 02/12/23 07:47 BP 141/65 H 02/12/23 07:47 Pulse Ox 94 02/12/23 07:47 O2 Del Method Room Air 02/12/23 07:47 O2 Flow Rate 2 02/09/23 19:30 BMI result Body Mass Index 28.0 Const: General: comfortable, no acute distress and alert Orientation/consciousness: patient oriented x3 Resp: Effort & Inspection: normal respiratory effort GI: Other: G tube in place Inspection: No distended and Yes incision (clean) Skin: General skin exam: no rashes or lesions noted and no jaundice Neuro: General: patient oriented x3 Objective Data Active Medications Amlodipine Besylate (Amlodipine Besylate 5 Mg Tablet) 5 mg PO DAILY [facility]; Protocol Last Admin: 02/11/23 09:16 Dose: 5 mg Documented By: AFSHIN Docusate Sodium (Docusate Sodium 100 Mg Capsule) 200 mg PO BID [facility] Heparin Sodium (Porcine) (Heparin Sodium,Porcine 5,000 Unit/Ml Vial) 5,000 unit SUBCUT Q12H [facility] Last Admin: 02/12/23 05:36 Dose: 5,000 unit Documented By: ANGELA Promethazine HCl 12.5 mg/ (Sodium Chloride) 50.5 mls @ 202 mls/hr IV Q6H PRN PRN Reason: Nausea and Vomiting Melatonin (Melatonin 3 Mg Tablet) 6 mg PO BEDTIME PRN PRN Reason: Insomnia Morphine Sulfate (Morphine Sulfate 4 Mg/Ml Cartridge) 4 mg IVPUSH Q4H PRN; Protocol PRN Reason: Pain, Severe (Pain Scale 7-10) Last Admin: 02/10/23 04:10 Dose: 4 mg Documented By: MANA Ondansetron HCl (Ondansetron Hcl 4 Mg/2 Ml Vial) 4 mg IVPUSH ONCE PRN PRN Reason: Nausea and Vomiting Ondansetron HCl (Ondansetron Hcl 4 Mg/2 Ml Vial) 4 mg IVPUSH Q8H PRN PRN Reason: Nausea and Vomiting Oxycodone HCl (Oxycodone Hcl Immed Release 5 Mg Tablet) 5 mg PO Q4H PRN PRN Reason: Pain, Moderate(Pain Scale 4-6) Last Admin: 02/11/23 20:01 Dose: 5 mg Documented By: ANGELA Sodium Chloride (0.9 % Sodium Chloride Flush 3 Ml Syringe) 3 ml IVFLUSH QSHIFT [facility] Last Admin: 02/11/23 20:01 Dose: 3 ml Documented By: ANGELA Labs 02/10/23 09:56 02/10/23 09:56 Procedures Date of Service Date of Service: 02/12/23 Progress Note: A&P Assessment and plan (1) Gastric volvulus: Status: Acute (2) Hypertension: Status: Acute Plan POD #3 s/p exploratory laparotomy, reduction gastric volvulus, closure of esophageal hiatus, open G-tube placement. Continues to do well post op, no evidence of recurrence. Abd remains benign with appropriate post op tenderness, incision clean, G tube remains in place. Tolerating solid diet but appetite minimal. Encouraged OOB/ambulation of halls and incentive spirometer use. Will reassess later today, if comfortable on oral analgesics and tolerating solid diet, stable for dc to home. Patient and family comfortable with plan. Possibly home later today or tomorrow. Hx of constipation- colace increased, miralax added. Time Spent With Patient Time: Total time managing care of this patient today ____ minutes. Quality Stroke Does the patient have a stroke diagnosis?: No VTE Prior VTE?: No VTE Risk Level:: Surgical - high VTE Device Contraindication: N/A - Device Ordered VTE Drug Contraindication: N/A - Med Ordered
[2023-02-12] MEDS: amLODIPine Besylate 5 MG TABLET PO (08:37)
[2023-02-12] MEDS: Docusate Sodium 100 MG CAPSULE 200 MG PO (08:37)
[2023-02-12] MEDS: 0.9 % Sodium Chloride Flush 3 ML SYRINGE IVFLUSH (08:37)
[2023-02-12] MEDS: polyethylene glycoL 3350 17 GM POWD.PACK PO (08:38)
[2023-02-12] MEDS: oxyCODONE HCl Immed Release 5 MG TABLET PO (08:51)
--- NOTE | 2023-02-12 12:08 | MHC.CM.PN ---
Addendum entered by Samira Kramer 02/12/23 13:48: IMM 02/12/23 Addendum entered by Samira Kramer 02/12/23 13:39: [facility] retracted the offer to accept the patient. CM contacted [facility]. Clinical info was hand faxed to the agency. T/W went to update the patient on DP. Surgical PA was with the patient. The plan is discharge today. Patient has decided to decline the Home care services. She will DC without VNA services later today at her request. Patients dtr will provide transportation home.. Addendum entered by Samira Kramer 02/12/23 12:54: [facility] has accepted the case for SN services. A [facility] 2 Face document has been requested for SN services. Family will provide transportation home. Original Note: DP Home with VNA. Agency preferences obtained and referrals have been sent. [facility] declined the patient; because they are at capacity. [facility] is checking the insurance. Patient will transport home with a family member. Discharge is anticipated tomorrow.
[2023-02-12 13:20] VITALS: BP 128/58; PULSE 81
--- NOTE | 2023-02-12 14:08 | PM.DS ---
DS: Providers Provider Date of Service: 02/12/23 Date of admission: 02/09/23 16:40 Date of discharge: 02/12/23 Primary care physician: AIDAN Jones Attending physician on admission: Kurt Cortez Attending physician on discharge: Kurt Cortez DS: Diagnosis Discharge Diagnosis (1) Gastric volvulus: Status: Acute (2) Hypertension: Status: Acute DS: Summary Hospital Course Hospital Course: HPI AT ADMISSION: Valentina Briggs is a 78 year old female with PMH of hiatal hernia, hypertension, hyperlipidemia who presented to the ED with complaints of sudden-onset epigastric/chest pain. The pain started today after eating lunch. It was associated with nausea and vomiting and some shortness of breath. The pain is described as severe stabbing and radiating to her back. She denies fever, but endorses feeling cold and clammy. Work up included CTA of chest and abdomen which showed a large paraesophageal hernia with thickening and narrowing of the GE junction and mesentroaxial gastric volvulus without evidence aortic aneurysm or dissection. Surgery was therefore consulted. HOSPITAL COURSE: She was admitted to the surgical service for further treatment of the paraesophageal hernia and gastric volvulus. It was recommended to proceed with exploratory laparotomy, reduction of gastric volvulus, G tube placement. She agreed and was added onto the OR schedule for that day. On 2//, exploratory laparotomy, reduction gastric volvulus, closure of esophageal hiatus, open G-tube placement was performed by Dr. Cortez without complication. The patient tolerated the procedure well and was admitted to the surgical service for observation. She had an uncomplicated recovery course. On POD #1, she felt improved with good incisional pain control. She was started on liquids. Her goldsmith was removed. She was ambulated. The following day she had some nausea and belching but felt improved later in the day and was advanced to a solid diet. She was started on a bowel regimen. On POD #3, she had good pain control on oral analgesics, was tolerating a solid diet without nausea or vomiting and was passing flatus. She was ambulating without difficulty. Her abdomen was benign with clean incision and appropriate post op tenderness with G tube in place and site clean. She felt ready for discharge to home. She was discharged to home on 02/12/ in stable condition. She is to follow up in the office in 1 week. Of note, her systolic BP was consistently elevated ranging from high 140s to the 160s and was therefore was started on norvasc 5mg PO daily with improvement. She is to follow up with her PCP regarding further management. Status at Discharge Functional status at discharge: independent ambulation Overall status at discharge: patient is progressing back to baseline Time Attestation Discharge coordination time: Less than 30 minutes Quality: Safe Use of Opioids Does Pt have an Active Cancer Diagnosis on the Problem List?: No Quality: Stroke Does the patient have a stroke diagnosis?: No Physical Exam Vital Signs: Vital Signs: Last Vital Signs Temp 97.1 F 02/12/23 07:47 Pulse 81 02/12/23 13:20 Resp 18 02/12/23 07:47 BP 128/58 L 02/12/23 13:20 Pulse Ox 94 02/12/23 07:47 O2 Del Method Room Air 02/12/23 07:47 O2 Flow Rate 2 02/09/23 19:30 BMI result Body Mass Index 28.0 Const: General: comfortable, no acute distress and alert Orientation/consciousness: patient oriented x3 Resp: Effort & Inspection: normal respiratory effort GI: Other: G tube in place Inspection: Yes incision (clean) Palpation (GI): Soft to palpation, Tenderness to palpation present (GI) (mild incisional ), no guarding and not rigid Skin: General skin exam: no rashes or lesions noted Neuro: General: patient oriented x3 Discharge Plan Discharge Anticipated Discharge Date/Time: 02/12/23 13:08 Patient Disposition: Home, Self-Care Discharge Diagnosis: hiatal hernia, gastric volvulus Referrals: Kurt Cortez MD [Physician] - 1 Week Dulce Mendez PA [Primary Care Provider] - 1 Week Discharge Medications: New docusate sodium [Colace] 100 mg capsule 200 mg PO BID Qty: 60 0RF oxycodone 5 mg tablet 5 mg PO Q4H PRN (Reason: pain (scale score 7-10)) Qty: 26 0RF Rx Instructions: Partial Fill upon patient request. Take 1-2 tablets every 4 hours as needed for pain. polyethylene glycol 3350 [Miralax] 17 gram/dose powder 17 g PO DAILY Qty: 119 0RF amlodipine [Norvasc] 5 mg tablet 5 mg PO DAILY Qty: 30 0RF Discharge Orders: Discharge Order (Routine); Ordered 02/12/23 Ordered By: Abimbola Magdaleno Diet: Advance to usual diet Activity on Discharge: No heavy lifting Stand Alone Forms: Patient Portal Discharge page Activity Restrictions/Additional Instructions: Apply an ice pack for short intervals (20 minutes on, followed by at least 20 minutes off) Do not apply heat. Do not use creams, lotions, or topical antibiotics. These can cause infection or allergic reaction. Ok to shower 48 hours after your surgery. You have steri strips (small white cloth strips) covering your incision- these will fall off ~1 week. No tub baths. Follow up in office with Dr. Cortez in 1 week. ([phone]) No heavy lifting (>10lbs) or strenuous activity! Call Your Doctor If: -Your temperature exceeds 101.5? F -You experience excessive pain or swelling -You have an unexpected reaction to medication -You have excessive bleeding -You experience continued vomiting/nausea -Your incision begins to separate -Your incision shows signs of infection such as increased redness, swelling, excessive pain, drainage (light blood or clear fluid is normal) or heat Care Plan Goals: Return to baseline health and resume normal activities following recovery period. Eventual removal of G tube. Health Concerns: hiatal hernia gastric volvulus hypertension Plan of Treatment: s/p ex lap, reduction of gastric volvulus and repair of hiatal hernia, G tube placement F/u in office in [address] Cortez F/u with PCP regarding HTN Assessment: Doing well post op
== END 2023-02-12 14:43 | disposition home or self-care (01) | DRG 328 ==
LOC: HO.ED 16:01 → HO.EDOVER 16:46 → HO.S3 19:01
PROVIDERS: Physician Assistant; Surgery; Admitting Provider Physician Assistant Surgical; Emergency Provider Emergency Medicine; PCP Physician Assistant Medical; Visit Provider Physician Assistant Surgical
PROC: 0BQT0ZZ Repair Diaphragm, Open Approach (ICD-10-PCS; CPT 49000; principal; 2023-02-09 16:40)
DX: K31.89 Other diseases of stomach and duodenum (principal); E78.00 Pure hypercholesterolemia, unspecified; I10 Essential (primary) hypertension; K44.9 Diaphragmatic hernia without obstruction or gangrene; Z79.899 Other long term (current) drug therapy
CPT/HCPCS: 36415; 71045; 71275; 74174; 80048; 80053; 82947; 83735; 83880; 84484; 85025; 85610; 87635; 93005; 99024; 99285; C1758; J0131; J0665; J0690; J1170; J1644; J2270; J2405; J2704; J2795; J3010; J7120; Q9967

== ENCOUNTER → 2023-02-09 13:30 | Outpatient (BNV) | payer MEDICARE, SELFPAY | PROVIDERS: Admitting Provider Physician Assistant Surgical; Emergency Provider Emergency Medicine; PCP Physician Assistant Medical; Visit Provider Internal Medicine | DX: R07.9 Chest pain, unspecified (principal) | CPT/HCPCS: 93010 ==

== ENCOUNTER → 2023-02-09 14:18 | Outpatient (BNV) | payer MEDICARE, SELFPAY | PROVIDERS: Emergency Provider Emergency Medicine; PCP Physician Assistant Medical; Visit Provider Physician Assistant Surgical | DX: K31.89 Other diseases of stomach and duodenum (principal) | CPT/HCPCS: 43332; 99024; 99222 ==

== ENCOUNTER 2023-02-22 14:01 | Outpatient (AMB) | payer MEDICARE, SELFPAY ==
--- NOTE | 2023-02-22 14:03 | A.OFFVIS_ITS ---
Intake Intake Visit Reasons: s/p paraesophageal hernia- Gtube Intake Note: Patient is seen in office for post op assessment post paraesophageal hernia/G- tube. Pt c/o: G-tube in place, admits to some leaking, redness denies hot to the touch or other concerns Telephone Order Dispatcher Required: No Accompanied by: Family/Other Allergies meperidine [From Demerol] Allergy (Verified 02/22/23 14:10) Unknown HPI HPI Comments History of Present Illness Details Patient presents with her daughter. She is tolerating a diet. She is occasionally having reflux symptoms. She was concerned that she recurrence of her esophageal hernia but was reassured this is highly unlikely. She is otherwise doing relatively well. Increasing her activity level. No incisional issues. [facility] [place] Medical History (Updated 02/20/23 @ 00:03 by Shashi Pugh) Acid reflux Hypertension Hypercholesteremia Surgical History History of exploratory laparotomy (02/09/23) Social History Household Members: None Housing: Condominium Do you presently have visiting nurse or other home services: No Unable to assess alcohol history related to: Unknown Patient Tobacco Use Status: Never used Tobacco service: No Physical Exam GI Other: Abdomen soft. Incision clean dry and intact healing uneventfully. G-tube in place. Assessment & Plan Assessment & Plan (1) Gastric volvulus: Code(s): K31.89 - Other diseases of stomach and duodenum Plan Patient has an upper GI study ordered for tomorrow to review her repair of gastric volvulus/paraesophageal hernia. We will contact her with the results. All questions answered. She will otherwise follow up p.r.n.. Coding Level of Care Code Global (77108) Diagnoses Gastric volvulus K31.89
== END 2023-02-22 14:29 | disposition home or self-care (01) ==
PROVIDERS: PCP Physician Assistant Medical; Visit Provider Surgery
DX: K31.89 Other diseases of stomach and duodenum (principal)
CPT/HCPCS: 99024

== ENCOUNTER → 2023-02-22 14:01 | Outpatient (BNVA) | payer MEDICARE, SELFPAY | PROVIDERS: PCP Physician Assistant Medical; Visit Provider Surgery | DX: K31.89 Other diseases of stomach and duodenum (principal) | CPT/HCPCS: 99212 ==

== ENCOUNTER 2023-02-23 07:58 | Outpatient (REF) | payer MEDICARE, SELFPAY ==
--- NOTE | ~2023-02-23 | FL_ITS ---
EXAMINATION: XR FLUOROSCOPY UPPER GI WITH AIR CLINICAL INFORMATION: 2 weeks status post hiatal hernia repair COMPARISON: CT scan 02/09/2023 TECHNIQUE: Fluoroscopic air contrast upper GI examination was performed utilizing standard techniques with thin and thick barium and effervescent granules. Numerous spot images were obtained. FINDINGS: Lateral cine images of the oropharynx and hypopharynx demonstrate normal swallow mechanism with normal epiglottic inversion and soft palate elevation. No tracheal penetration, glottic or subglottic aspiration identified. No nasopharyngeal reflux present. Hypopharyngeal structures appear normal without evidence of mass or diverticulum. 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 Dual and single contrast images of the esophagus demonstrate normal caliber, contour, and mucosal pattern. No evidence of stricture, mass, or ulcerations identified. Esophageal peristalsis was normal. A small type I hiatal hernia is identified. Gastroesophageal reflux is seen up to the thoracic inlet. Dual contrast and single contrast images of the stomach demonstrated normal contour and mucosal pattern without evidence of mass, ulceration, or other abnormality. There is no extravasation of contrast. A gastrostomy tube is present. Contrast freely passed into the gastric antrum and duodenal bulb without delay. Single and air-contrast images of the duodenal bulb demonstrate no abnormality. The duodenal sweep has a normal appearance, course, and mucosal fold appearance. The imaged proximal jejunum has a normal fold pattern and caliber. FLUOROSCOPY TIME: 2 minutes 37 seconds Number of Spot Images: 15 Number of Cine: 5 DOSE AREA PRODUCT: 2226 uGy-m2 (microgray-meter squared) FL/FL upper GI w air IMPRESSION: 1. 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 Small type I hiatal hernia is identified, either recurrent or persistent. 3. Moderate gastroesophageal reflux 4. Presence of a gastrostomy tube This procedure was performed by Geoff Grubbs PA-C, and supervised by Dr. Hobbs
== END 2023-02-23 07:59 | disposition home or self-care (01) ==
LOC: HO.XRAY 07:58
PROVIDERS: PCP Physician Assistant Medical; Visit Provider Surgery
DX: K31.89 Other diseases of stomach and duodenum (principal); Z87.19 Personal history of other diseases of the digestive system
CPT/HCPCS: 74246

== ENCOUNTER → 2023-02-23 07:59 | Outpatient (BNV) | payer MEDICARE, SELFPAY | PROVIDERS: PCP Physician Assistant Medical; Visit Provider Radiology Diagnostic Radiology | DX: K44.9 Diaphragmatic hernia without obstruction or gangrene (principal) | CPT/HCPCS: 74246 ==

== ENCOUNTER 2023-03-22 08:50 | Outpatient (AMB) | payer MEDICARE, SELFPAY ==
--- NOTE | 2023-03-22 08:54 | A.OFFVIS_ITS ---
Intake Vital Signs 03/22/23 08:59 Weight 147 lb BP 146/88 H Blood Pressure Location Lt brachial Position Sitting Pulse 92 Intake Visit Reasons: 4wk f/u paraesophageal hernia- Gtube Intake Note: Patient here 4wk f/u paraesophageal hernia and G-tube placement. Patient c/o: reports healing well. Fire Eater Required: No Accompanied by: Daughter Allergies meperidine [From Demerol] Allergy (Verified 03/22/23 08:59) Unknown HPI HPI Comments History of Present Illness Details Patient presents with her daughter. All things considered, she is doing well patient is tolerating a diet. She is increasing her activity level. He has minimal incisional discomfort. G-tube is to be removed today. PFSH Medical History Acid reflux Hypertension Hypercholesteremia Surgical History History of exploratory laparotomy (02/09/23) Social History Household Members: None [facility] Do you presently have visiting nurse or other home services: No Unable to assess alcohol history related to: Unknown Patient Tobacco Use Status: Never used Tobacco service: No Physical Exam Vital Signs: Last Vital Signs Pulse 92 03/22/23 08:59 BP 146/88 H 03/22/23 08:59 GI Other: Abdomen is soft. Incision clean dry and intact. Patient had uneventful G-tube removal. Dressing applied. Well-tolerated Assessment & Plan Assessment & Plan (1) Gastric volvulus: Code(s): K31.89 - Other diseases of stomach and duodenum Plan Patient and daughter have been given local instructions including drain drain site care and will follow-up p.r.n.. All questions answered Coding Level of Care Code Global (80660) Diagnoses Gastric volvulus K31.89
[2023-03-22 08:59] VITALS: BP 146/88; PULSE 92
== END 2023-03-22 09:14 | disposition home or self-care (01) ==
PROVIDERS: PCP Physician Assistant Medical; Visit Provider Surgery
DX: K31.89 Other diseases of stomach and duodenum (principal)
CPT/HCPCS: 99024

== ENCOUNTER → 2023-03-22 08:50 | Outpatient (BNVA) | payer MEDICARE, SELFPAY | PROVIDERS: PCP Physician Assistant Medical; Visit Provider Surgery | DX: Z43.1 Encounter for attention to gastrostomy (principal); K31.89 Other diseases of stomach and duodenum | CPT/HCPCS: 99212 ==